=== PATIENT | female | born 1990 | race Caucasian/White ===

== ENCOUNTER → 2017-05-15 | Outpatient (CLI) | payer OTHER ==
--- NOTE | 2017-05-15 08:40 | KCIC ---
MR of the right knee Indication: Anterior pain for about 3 weeks. Technique: The standard multiplanar sequences are obtained. Findings: Medial meniscus:Intact. Lateral meniscus: Signal within the anterior horn violates the superior surface, sagittal series 6, image 18 and coronal series 8, image 16. Posterior horn intact. Anterior cruciate ligament: Intact Posterior cruciate ligament: Intact Medial collateral ligament: Intact. Iliotibial band: Intact. Posterolateral structures: Fibular collateral ligament, biceps tendon and popliteus tendon are intact. Extensor mechanism: Intact. Fluid: Small amount of joint fluid. Articular cartilage -patellofemoral joint:Intact -medial compartment:Intact -lateral compartment:Intact Bones: Mild cystic change within the proximal tibia, adjacent to the PCL insertion, compatible with benign cysts. No significant bone lesion or acute fracture. Soft tissue: Unremarkable Impression: 1. Findings compatible with a small isolated tear of the anterior horn of the lateral meniscus. 2. No other significant abnormality. Electronically signed by: Selvin Muñoz MD (05/15/2017 8:37 AM) [facility]
== END | disposition home or self-care (01) ==
LOC: KCIC MRI 07:59
PROVIDERS: ATTEND Nurse Practitioner Gerontology
DX: S83.281A Other tear of lateral meniscus, current injury, right knee, initial encounter (principal); X58.XXXA Exposure to other specified factors, initial encounter; Y93.89 Activity, other specified; Y92.89 Other specified places as the place of occurrence of the external cause; Y99.8 Other external cause status
CPT/HCPCS: 73721

== ENCOUNTER 2017-09-19 09:22 | Day surgery (SDC) | payer BC ==
[~2017-09-19 09:22] MED LIST: HYDROmorphone 2 MG/ML VIAL IV; IV RINGERS,LACTATED 1000ML 1,000 ML IV; LIDOCAINE 1% PF 2 ML VIAL. ID; MORPHINE SULFATE 2 MG/ML DISP.SYRIN. IV; ONDANSETRON PF 4 MG/2 ML VIAL. IV; PROCHLORPERAZINE 10 MG/2 ML VIAL. IV; fentaNYL PF VIAL 100 MCG/2 ML VIAL IV
[2017-09-19] MEDS ORDERED: fentaNYL PF VIAL 100 MCG/2 ML VIAL (09:51)
[2017-09-19] MEDS ORDERED: DEXAMETHASONE SOD PHOS 20 MG/5 ML VIAL. (09:51)
[2017-09-19] MEDS ORDERED: LIDOCAINE 2% PF Vial for OR 5 ML VIAL. (09:51)
[2017-09-19] MEDS ORDERED: PROPOFOL 20 ML IV (09:51)
[2017-09-19] MEDS ORDERED: ONDANSETRON PF 4 MG/2 ML VIAL. (09:51)
[2017-09-19] MEDS ORDERED: MIDAZOLAM HCL/PF 2 MG/2 ML VIAL. (09:51)
[2017-09-19 09:54] LABS: NEG OBC UR NEG; POS OBC UR POS; U PREG PATIENT NEGATIVE (NEG)
[2017-09-19] MEDS: IV RINGERS,LACTATED 1000ML 1,000 ML IV (10:22)
[2017-09-19] MEDS: BUPIVACAINE MPF 0.5% 30 ML VIAL. (11:06)
[2017-09-19] MEDS: EPINEPHrine VIAL 30 MG/30 ML VIAL (11:06)
[2017-09-19] MEDS ORDERED: SEVOFLURANE 61 TO 120 MINUTES. IH (11:09)
[2017-09-19] MEDS: LIDOCAINE 1% PF 30 ML VIAL. (11:18)
[2017-09-19] MEDS: PROCHLORPERAZINE 10 MG/2 ML VIAL. IV ×2 (11:36→11:43)
[2017-09-19] MEDS: fentaNYL PF VIAL 100 MCG/2 ML VIAL IV ×2 (11:37→11:44)
[2017-09-19] MEDS: HYDROcodone/APAP 5/325MG 1 TAB TABLET PO (12:27)
== END 2017-09-19 13:15 | disposition home or self-care (01) ==
LOC: SURG 09:22
DX: S83.281A Other tear of lateral meniscus, current injury, right knee, initial encounter (principal); F32.9 Major depressive disorder, single episode, unspecified; Z96.698 Presence of other orthopedic joint implants; Z90.89 Acquired absence of other organs; F41.9 Anxiety disorder, unspecified; E66.9 Obesity, unspecified; Z68.31 Body mass index [BMI] 31.0-31.9, adult; Z87.891 Personal history of nicotine dependence; F10.99 Alcohol use, unspecified with unspecified alcohol-induced disorder; Z72.89 Other problems related to lifestyle; X58.XXXA Exposure to other specified factors, initial encounter; Y93.9 Activity, unspecified; Y92.9 Unspecified place or not applicable; Y99.9 Unspecified external cause status
CPT/HCPCS: 29881; 81025; A4215; C1782; J0171; J0690; J0780; J1100; J2250; J2405; J2704; J3010; J3490; J7120

== ENCOUNTER → 2018-04-12 | Outpatient (CLI) | payer BC ==
[2017-09-19 12:25] VITALS: BP 110/64
[~2018-04-12] MED LIST changes: +DOCU-109 PO; +HYDR-971 PO; -HYDROmorphone 2 MG/ML VIAL IV; -IV RINGERS,LACTATED 1000ML 1,000 ML IV; -LIDOCAINE 1% PF 2 ML VIAL. ID; -MORPHINE SULFATE 2 MG/ML DISP.SYRIN. IV; +ONDA4TAB10 SL; -ONDANSETRON PF 4 MG/2 ML VIAL. IV; -PROCHLORPERAZINE 10 MG/2 ML VIAL. IV; -fentaNYL PF VIAL 100 MCG/2 ML VIAL IV
--- NOTE | 2018-04-12 14:08 | RAD ---
EXAM: Nuclear hepatobiliary scan. HISTORY: Right upper quadrant pain. TECHNIQUE: Following intravenous administration of 5.0 mCi Tc 99m Choletec, anterior images of the abdomen were obtained at five minute intervals through one hour. Subsequently, 8 Ounces of Ensure Was Ingested and additional images to assess gallbladder ejection fraction were obtained. FINDINGS: There is prompt radiotracer uptake by the liver. No focal defect is seen. There is normal excretion into the biliary tree. The gallbladder is visualized within sixty minutes and there is free flow into the duodenum. The gallbladder ejection fraction is decreased at 8%. IMPRESSION: Significantly decreased gallbladder ejection fraction of 8%. Electronically signed by: Karuna Newton MD (04/12/2018 2:05 PM) [facility]
== END | disposition home or self-care (01) ==
LOC: NM 09:58
PROVIDERS: ATTEND Physician Assistant Medical
DX: R10.11 Right upper quadrant pain (principal); Z87.891 Personal history of nicotine dependence
CPT/HCPCS: 78226; 96374; 96375; A9537

== ENCOUNTER → 2018-05-03 | Day surgery (SDC) | payer BC ==
[~2018-05-03] VITALS: Ht 160 cm; Wt 88.0 kg
[~2018-05-03] MED LIST changes: +BUPIVACAINE-EPI 0.25%-1:200000 MPF 30 ML VIAL. INJ ONE; +BUPIVACAINE-EPI 0.5%-1:200000 50 ML VIAL. ONE; +DESFLURANE 31 TO 60 MINUTES IH ONE; +DEXAMETHASONE SOD PHOS 20 MG/5 ML VIAL. ONE; +ESMOLOL 100 MG/10 ML VIAL. IV ONE; +GLYCOPYRROLATE 1 MG/5 ML VIAL. ONE; +HYDROmorphone 2 MG/ML VIAL IV PRN; +IOHEXOL 300 MG/ML 100ML VIAL. ONE; +IV RINGERS,LACTATED 1000ML 1,000 ML IV SCH; +LIDOCAINE 1% PF 2 ML VIAL. ID PRN; +LIDOCAINE 2% PF Vial for OR 5 ML VIAL. ONE; +MORPHINE SULFATE 2 MG/ML VIAL. IV PRN; +NEOSTIGMINE METHYLSULFATE 5 MG/5 ML SYRINGE. ONE; +ONDANSETRON PF 4 MG/2 ML VIAL. IV PRN; +ONDANSETRON PF 4 MG/2 ML VIAL. ONE; +PHENYLEPHRINE in 0.9% NACL PF 1 MG/10 ML SYRINGE. IV ONE; +PROCHLORPERAZINE 10 MG/2 ML VIAL. IV PRN; +PROPOFOL 20 ML IV ONE; +ROCURONIUM 50 MG/5 ML VIAL. ONE; +SUCCINYLCHOLINE 200 MG/10 ML VIAL. ONE; +SURGICEL HEMOSTAT 4X8 EACH. ONE; +depoprovera; +fentaNYL PF VIAL 100 MCG/2 ML VIAL IV PRN; +fentaNYL PF VIAL 100 MCG/2 ML VIAL ONE; +oxyCODONE/APAP 5/325 1 TAB TABLET PO ONE
[2018-05-03 09:55] LABS: U PREG PATIENT NEGATIVE (NEG)
--- NOTE | 2018-05-03 11:26 | PDOC4 ---
Operative Note Operative Note Date: 05/03/2018 Preoperative diagnosis: Biliary dyskinesia Postoperative diagnosis: Same Procedure: Laparoscopic cholecystectomy Surgeon: Riccardo Specimen: Gallbladder Dictation: Patient is 27-year-old female is had right upper quadrant abdominal pain postprandial nausea and abnormal HIDA scan with ejection fraction less than procedure of laparoscopic cholecystectomy was explained to the patient detail was benefits were also discussed including bleeding infection injury to intra-abdominal contents possibly necessitating further or open operations alternatives to this procedure also discussed with patient seemed understanding gave both verbal and written consent had procedure performed. Patient was taken to the operating room placed in supine position general anesthesia was initiated once patient was asleep and intubated her abdomen was prepped and draped usual sterile fashion using ChloraPrep and area just below the umbilicus injected with quarter percent Marcaine with epinephrine incisions made lead blade scalpel varies needle was placed within the abdomen and a pneumoperitoneum was achieved once this complete well millimeter port was placed and a 5 mm camera was placed within the abdomen which was inspected no other at maladies were noted a 5 mm port was placed in the epigastrium a second 5 mm port was placed in the right lateral abdomen and one in the right mid abdomen. The dome of the gallbladder's grasped retracted cephalad the infundibulum the gallbladder's grasped tract laterally exposing the triangle adherent tissues the triangle are taken down bluntly dissection exposing the cystic duct and cystic artery both were doubly clipped and transected the gallbladder taken off the liver with hook left cautery placed in Endo Catch bag and removed from the umbilicus right upper quadrant was irrigated and suctioned dry hemostasis deemed to be appropriate and the pneumoperitoneum was reduced all ports removed. Fascial defect of the umbilicus closed [id number] 0 Vicryl suture and skin was approximate all port sites 4 septic Monocryl Mastisol Steri-Strips and Band-Aids and island dressings were applied. Patient was waken expanded in the operating room taken recovery in stable condition all sponge instrument needle counts listed as correct estimate blood loss 5 mL MARY CARVAJAL MD May 03, 2018 11:26
--- NOTE | 2018-05-03 11:27 | DISCH ---
DISCHARGE INSTRUCTIONS Condition on Discharge Condition on Discharge: Stable Activity After Discharge Activity Instructions for Disc: Avoid exertion Other activity instructions: no lifting greater than 20 pounds for 2 weeks Diet after Discharge Diet after Discharge: Low Fat Wound Incision Care Other wound/incision instructi: May shower in 24 hours Contacting the after DC Call your doctor for: If your condition worsens Follow-Up Follow up with: Dr. Carvajal in 2 weeks MARY CARVAJAL MD May 03, 2018 11:27
[2018-05-03] MEDS: fentaNYL PF VIAL 100 MCG/2 ML VIAL IV PRN ×2 (12:14→12:28)
[2018-05-03 13:15] VITALS: BP 110/68
--- NOTE | 2018-05-07 10:10 | PATHOLOGY ---
[facility] Accession Number: [id number] . 01 Material submitted: . GALLBLADDER . 01 Clinical history: . Biliary dyskinesia . 02 Diagnosis: Gallbladder, laparoscopic cholecystectomy: - Cholesterolosis. - Chronic cholecystitis. [facility]/05/06/2018 . 02 Comment: There are no calculi identified within the gallbladder lumen or specimen container. There is no evidence of malignancy. (JPM:[facility] 05/06/2018) . 02 Electronically signed: . Nathanael Jones MD, Pathologist NPI- [id number] . 01 Gross description: . The specimen is received in formalin, labeled "Jim, Emmaly, gallbladder", is a intact, distended gallbladder measuring 6.0 x 2.7 x 2.3 cm with a glistening, smooth and purple-green serosa. The lumen is filled with yellow-green viscous bile and no discrete calculi or masses are identified. The mucosa is jones-brown and diffusely covered by yellow flecks. The wall measures up to 0.1 cm thick. Health Lead tissue is submitted in A1. ([facility]; 05/03/2018) [facility] . 02 Pathologist provided ICD-10: K81.1, K82.4 . 02 CPT . 429877 Specimen Comment: A courtesy copy of this report has been sent to Specimen Comment: [phone], . Specimen Comment: Report sent to / DR GOLDMAN Specimen Comment: A duplicate report has been generated due to demographic updates. Performed at: 01 [facility] [address], [place], [place] [id number] MD Kyle Montero MD Phone: [phone] Performed at: 02 [facility] [address], [place] [id number] MD Nathanael Jones MD Phone: [phone]
== END | disposition home or self-care (01) ==
LOC: SURG 08:50
PROVIDERS: ATTEND Surgery
DX: K81.1 Chronic cholecystitis (principal); F32.9 Major depressive disorder, single episode, unspecified; Z79.899 Other long term (current) drug therapy; K08.409 Partial loss of teeth, unspecified cause, unspecified class; Z98.890 Other specified postprocedural states; F17.210 Nicotine dependence, cigarettes, uncomplicated; Z72.89 Other problems related to lifestyle
CPT/HCPCS: 47562; 81025; 88304; A7015; J0330; J0690; J1100; J2001; J2370; J2405; J2704; J2710; J3010; J3490; J7030; Q9967; J0780